=== PATIENT | male | born 1955 | race Caucasian/White ===

== ENCOUNTER → 2019-08-24 | Day surgery (SDC) | payer MEDICARE, OTHER ==
[~2019-08-24] MED LIST: ACETAMINOPHEN 325 MG TABLET PO PRN; ALBUTEROL SULFATE 2.5 MG/3 ML NEBU. NEB PRN; ATOR40TA PO; ATROPINE 0.5 MG/5 ML DISP.SYRIN. IV PRN; CARV12.547 PO; FLUT9.9S NS; HYDR12.58 PO; IV RINGERS SOLUTION,LACTATED 1,000 ML IV SCH; MIDAZOLAM HCL PF 2 MG/2 ML VIAL. IV PRN; OMEP20TA63 PO; ONDANSETRON PF 4 MG/2 ML VIAL. IV PRN; PHENOL ORAL SPRAY 177ML BOTTLE. MM PRN; PROPOFOL 20 ML IV ONE; diphenhydrAMINE 50 MG/ML VIAL IV PRN
[2019-08-24 11:03] VITALS: BP 155/88
== END ==
LOC: SURG 08:55
PROVIDERS: ATTEND Internal Medicine Gastroenterology
DX: R10.13 Epigastric pain (principal); I10 Essential (primary) hypertension; E78.5 Hyperlipidemia, unspecified; I25.10 Atherosclerotic heart disease of native coronary artery without angina pectoris; Z85.828 Personal history of other malignant neoplasm of skin
CPT/HCPCS: 43239; J2704

== ENCOUNTER → 2019-08-27 | Outpatient (CLI) | payer MEDICARE, OTHER ==
[2019-08-24 11:03] VITALS: BP 155/88
[~2019-08-27] MED LIST changes: -ACETAMINOPHEN 325 MG TABLET PO PRN; -ALBUTEROL SULFATE 2.5 MG/3 ML NEBU. NEB PRN; -ATROPINE 0.5 MG/5 ML DISP.SYRIN. IV PRN; -IV RINGERS SOLUTION,LACTATED 1,000 ML IV SCH; -MIDAZOLAM HCL PF 2 MG/2 ML VIAL. IV PRN; -ONDANSETRON PF 4 MG/2 ML VIAL. IV PRN; -PHENOL ORAL SPRAY 177ML BOTTLE. MM PRN; -PROPOFOL 20 ML IV ONE; -diphenhydrAMINE 50 MG/ML VIAL IV PRN
--- NOTE | 2019-08-27 13:58 | RAD ---
CT of the abdomen without contrast 08/27/2019 INDICATION: Epigastric pain. History of umbilical and inguinal hernia repairs. History of bypass procedure. COMPARISON STUDY: CT of the abdomen and pelvis without contrast March 15, 2016. TECHNIQUE: Multidetector CT imaging of the abdomen was performed without the administration of IV contrast. Enteric contrast was administered prior exam. FINDINGS: Visualized lung bases demonstrate no acute abnormality. Mild scarring or atelectasis appears to be present. The liver is unremarkable. Probable cholelithiasis noted. Gallbladder is otherwise unremarkable. The spleen, adrenal glands, pancreas are unremarkable. Left kidney is unremarkable. Small cyst within the inferior pole the right kidney is unchanged. No hydronephrosis or nephrolithiasis is identified.Visualized bowel demonstrates no evidence of obstruction. Partially visualized appendix is unremarkable. No free fluid or free air seen in the upper abdomen. Scarring appears to be present in the supraumbilical abdominal midline. What could be a small surgical mesh is present deep to the underlying anterior abdominal wall fascia. No evidence of recurrent hernia is identified. No abnormal focal fluid collection is seen. No acute osseous abnormality is identified. IMPRESSION: 1.No evidence of acute intra-abdominal abnormality is identified. 2. Probable cholelithiasis. Ultrasound could be considered for further characterization. CT DOSING PQRS STATEMENT: One or more of the following individualized dose reduction techniques were utilized for this examination: 1. Automated exposure control 2. Adjustment of the mA and/or kV according to patient size 3. Use of iterative reconstruction technique Electronically signed by: Gael Bal MD (08/27/2019 1:55 PM) [id number]
== END | disposition home or self-care (01) ==
LOC: CT 09:07
PROVIDERS: ATTEND Internal Medicine Gastroenterology
DX: N28.1 Cyst of kidney, acquired (principal)
CPT/HCPCS: 74150

== ENCOUNTER 2021-07-14 11:01 | Emergency (ER) | payer MEDICARE, OTHER ==
[~2021-07-14] VITALS: Ht 172.7 cm; Wt 86.5 kg
[2021-07-14 11:01] VITALS: BP 135/77
[2021-07-14 11:59] LABS: BASO % 1 % (0-3); EOS # 0.1 x10^3/uL (0.0-0.7); EOS % 2 % (0-3); HEMATOCRIT 45.6 % (39.0-53.0); HEMOGLOBIN 15.5 g/dL (13.0-17.5); LYMPH # 1.5 x10^3/uL (1.0-4.8); LYMPH % 26 % (24-48); MEAN CORPUSCULAR HEMOGLOBIN 32 pg (25-35); MEAN CORPUSCULAR HGB CONC 34 g/dL (31-37); MEAN CORPUSCULAR VOLUME 95 fL (79-100); MONO # 0.4 x10^3/uL (0.0-1.1); MONO % 7 % (0-9); NEUT # 3.6 x10^3uL (1.8-7.7); NEUT % 64 % (31-73); PLATELET COUNT 157 x10^3/uL (140-400); RED CELL DISTRIBUTION WIDTH 12.6 % (11.5-14.5); WHITE BLOOD COUNT 5.6 x10^3/uL (4.0-11.0)
[2021-07-14 12:02] LABS: CALCIUM 9.8 mg/dL (8.5-10.1); CREATININE 0.8 mg/dL (0.7-1.3); GFR 96.1
--- NOTE | 2021-07-14 12:02 | PHYS DOC ---
Past History Past Surgical History: Coronary Bypass Surgery (JOESPH BETTS APRN) Alcohol Use: Occasionally (JOESPH BETTS APRN) General Adult EDM: Chief Complaint: Palpitations HPI: HPI: Patient is a 66-year-old male who presents with fluttering in his left chest. Patient states "I have this weird swooshing feeling in the left side of my chest and back". Patient denies chest pain, shortness of breath, dizziness, nausea/vomiting. Patient denies pain. Patient has a history of high blood pressure, high cholesterol, SC and triple bypass in 2008. Patient is refusing anything for pain control at this time (JOESPH BETTS APRN) Review of Systems: Review of Systems: ROS At least 10 ROS systems have been reviewed and are negative except as documented in the HPI. General: Negative except as outlined in HPI above. Skin: Negative except as outlined in HPI above. HEENT: Negative except as outlined in HPI above. Neck: Negative except as outlined in HPI above. Respiratory: Negative except as outlined in HPI above.. Cardiovascular: Negative except as outlined in HPI above. Abdomen: Negative except as outlined in HPI above. : Negative except as outlined in HPI above. Back/MSK: Negative except as outlined in HPI above. Neuro: Negative except as outlined in HPI above. Psych: Negative except as outlined in HPI above. (JOESPH BETTS APRN) Allergies: Allergies: Allergies Coded Allergies Type Severity Reaction Last Updated Verified No Known Drug Allergies 08/24/19 No (JOESPH BETTS APRN) Physical Exam: PE: Constitutional: Well developed, well nourished, no acute distress, non-toxic appearance. [] HENT: Normocephalic, atraumatic, bilateral external ears normal, oropharynx mo ist, no oral exudates, nose normal. [] Eyes: PERRLA, EOMI, conjunctiva normal, no discharge. [] Neck: Normal range of motion, no tenderness, supple, no stridor. [] Cardiovascular:Heart rate regular rhythm, no murmur [] Lungs & Thorax: Bilateral breath sounds clear to auscultation [] Abdomen: Bowel sounds normal, soft, no tenderness, no masses, no pulsatile masses. [] Skin: Warm, dry, no erythema, no rash. [] Back: No tenderness, no CVA tenderness. [] Extremities: No tenderness, no cyanosis, no clubbing, ROM intact, no edema. [] Neurologic: Alert and oriented X 3, normal motor function, normal sensory function, no focal deficits noted. [] Psychologic: Affect normal, judgement normal, mood normal. [] (JOESPH BETTS APRN) Current Patient Data: Vital Signs: Vital Signs Date Time Temp Pulse Resp B/P (MAP) Pulse Ox O2 Delivery O2 Flow Rate FiO2 07/14/21 11:01 98.6 70 20 135/77 (96) 97 Room Air (JOESPH BETTS APRN) EKG: EKG: [] (JOESPH BETTS APRN) Radiology/Procedures: Radiology/Procedures: []INDICATION: Reason: cp / Spl. Instructions: / History: COMPARISON: None. FINDINGS: Single view of chest obtained. Poststernotomy changes. No definite focal airspace consolidation or pulmonary edema. IMPRESSION: * No focal airspace consolidation or edema. Electronically signed by: Javi Baig MD (07/14/2021 12:15 PM) [id number] (JOESPH BETTS APRN) Heart Score: C/O Chest Pain: No Risk Factors: Risk Factors: DM, Current or recent (<one month) smoker, HTN, HLP, family history of CAD, obesity. Risk Scores: Score 0 - 3: 2.5% MACE over next 6 weeks - Discharge Home Score 4 - 6: 20.3% MACE over next 6 weeks - Admit for Clinical Observation Score 7 - 10: 72.7% MACE over next 6 weeks - Early Invasive Strategies (JOESPH BETTS APRN) Course & Med Decision Making: Course & Med Decision Making Pertinent Labs and Imaging studies reviewed. (See chart for details) [] 66-year-old male who presents with a "swishing or buzzing feeling on the left side of his chest and back". She was denying chest pain, shortness of breath, nausea/vomiting. Patient denies being able to reproduce pain. Patient does have a history of an SC in 2008 and a triple bypass. Patient is currently on pr dications for high cholesterol and high blood pressure. Chest x-ray and labs are unremarkable. D-dimer 0.44. Troponin was negative. EKG showed sinus rhythm, contour abnormality, consistent with inferior infarct, chronic. Discussed results with patient. Patient most likely is having a muscle spasm. Patient is currently treating sciatic pain at home from previous lower back injury. I offered Flexeril and Toradol to see if it helped with the sensation in his back. Patient is refusing any medication. Advised patient to call his PCP on Friday and make a follow-up appointment if sensation continues. Patient given strict return precautions. Patient verbalizes understanding. Patient's hemodynamically stable upon disposition. (JOESPH BETTS APRN) Taeon Disclaimer: Sarah Disclaimer: This electronic medical record was generated, in whole or in part, using a voice recognition dictation system. (JOESPH BETTS APRN) Attending Co-Sign The patient was seen and interviewed as well as examined at the bedside. The chart was reviewed. The case was discussed. Agree with the plan of care. (ALBER EVERETT DO) Departure Departure: Impression: Primary Impression: Spasm of thoracic back muscle Disposition: HOME / SELF CARE / HOMELESS Condition: STABLE Referrals: ADRIÁN NEIL (PCP) Patient Instructions: Muscle Cramps, Htpd-[id number], Sciatica, [id number] Additional Instructions: You were seen in the emergency room for a swishing sensation in your left upper back. Your chest x-ray and labs were unremarkable. Most likely you are having a muscle spasm. Please call your PCP on Friday to make a follow-up appointment. If you have chest pain, shortness of breath, dizziness or any worsening or concerning symptoms please return to the emergency room. EMERGENCY DEPARTMENT GENERAL DISCHARGE INSTRUCTIONS Thank you for coming to [facility] (ED) today and trusting us with you care. We trust that you had a positivie experience in our Emergency Department. If you wish to speak to the department management, you may call the director at [phone]. YOUR FOLLOW UP INSTRUCTIONS ARE FOLLOWS: 1. Do you have a private Doctor? If you do not have a private doctor, please ask for a resource list of physicians or clinics that may be able to assist you with follow up care. 2. The Emergency Physician has interpreted your x-rays. The X-Ray specialist will also review them. If there is a change in the findings, you will be notified in 48 hours when at all possible. 3. A lab test or culture has been done, your results will be reviewed and you will be notified if you need a change in treatment. ADDITIONAL INSTRUCTIONS AND INFORMATION: 1. Your care today has been supervised by a physician who is specially trained in emergency care. Many problems require more than one evaluation for a complete diagnosis and treatment. We recommend that you schedule your follow up appointment as recommended to ensure complete treatment of you illness or injury. If you are unable to obtain follow up care and continue to have a problem, or if your condition worsens, we recommend that you return to the ED. 2. We are not able to safely determine your condition over the phone nor are we able to give sound medical advice over the phone. For these safety reasons, if you call for medical advice we will ask you to come to the ED for further evaluation. 3. If you have any questions regarding these discharge instructions please call the ED at [phone]. SAFETY INFORMATION: In the interest of safety, wellness, and injury prevention; we encourage you to wear your sealbelt, if you smoke; quite smoking, and we encourage family to use a protective helmet for bicycling and other sporting events that present an increased risk for head injury. IF YOUR SYMPTOMS WORSEN OR NEW SYMPTOMS DEVELOP, OR YOU HAVE CONCERNS ABOUT YOUR CONDITION; OR IF YOUR CONDITION WORSENS WHILE YOU ARE WAITING FOR YOUR FOLLOW UP APPOINTMENT; EITHER CONTACT YOUR PRIMARY CARE DOCTOR, THE PHYSICIAN WHOSE NAME AND NUMBER YOU WERE GIVEN, OR RETURN TO THE ED IMMEDIATELY. JOESPH BETTS APRN Jul 14, 2021 12:02 ALBER EVERETT DO Jul 15, 2021 06:39
[2021-07-14 12:14] LABS: ALBUMIN 3.9 g/dL (3.4-5.0); ALBUMIN/GLOBULIN RATIO 1.5 (1.0-1.7); TOTAL BILIRUBIN 0.8 mg/dL (0.2-1.0); TOTAL PROTEIN 6.5 g/dL (6.4-8.2)
--- NOTE | 2021-07-14 12:17 | RAD ---
INDICATION: Reason: cp / Spl. Instructions: / History: COMPARISON: None. FINDINGS: Single view of chest obtained. Poststernotomy changes. No definite focal airspace consolidation or pulmonary edema. IMPRESSION: * No focal airspace consolidation or edema. Electronically signed by: Javi Baig MD (07/14/2021 12:15 PM) [id number]
--- NOTE | 2021-07-14 19:47 | EKG ---
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
== END 2021-07-14 13:30 | disposition home or self-care (01) ==
LOC: ER 11:01
DX: I49.8 Other specified cardiac arrhythmias (principal); Z95.1 Presence of aortocoronary bypass graft
CPT/HCPCS: 36415; 71045; 80053; 83880; 84484; 85025; 85379; 85610; 85730; 93005; 99285

== ENCOUNTER → 2021-07-26 | Outpatient (CLI) | payer MEDICARE, OTHER ==
[2021-07-14 11:01] VITALS: BP 135/77
--- NOTE | 2021-07-26 10:10 | RAD ---
EXAM: Chest CT without intravenous contrast. HISTORY: Chest wall and scapular pain. TECHNIQUE: Computed tomographic images of the chest were obtained without contrast. Multiplanar refor matting was performed. *One or more of the following individualized dose reduction techniques were utilized for this examina tion: 1. Automated exposure control. 2. Adjustment of the mA and/or kV according to patient size. 3. Use of iterative reconstruction technique. COMPARISON: None. FINDINGS: The heart is normal in size. There is evidence of prior coronary artery bypass grafting. No pathologically enlarged mediastinal or hilar lymph node is seen. There is no pneumothorax or pleural effusion. There is minimal posterior dependent atelectasis. There is mild emphysema. There is no inf iltrate. There is a 2 mm nodule within the left lower lobe which is likely a partially calcified gran uloma. No suspicious nodule is seen. There is cholelithiasis. There is no acute finding involving the visualized upper abdomen. No fractur e is seen. There is degenerative change involving the visualized spine. This includes a left paracent ral disc protrusion contributing to suspected mild central canal stenosis at T7-T8. There is a promin ent superior endplate Schmorl's node at T1. IMPRESSION: 1. No acute thoracic finding. 2. Mild emphysema. 3. Findings consistent with prior CABG. 4. Cholelithiasis. Electronically signed by: Keiko Kamara MD (07/26/2021 10:08 AM) [facility]
== END ==
LOC: CT 09:30
PROVIDERS: ATTEND Physician Assistant Medical
DX: J43.9 Emphysema, unspecified (principal); R91.1 Solitary pulmonary nodule; K80.20 Calculus of gallbladder without cholecystitis without obstruction; M51.44 Schmorl's nodes, thoracic region; R07.89 Other chest pain
CPT/HCPCS: 71250

== ENCOUNTER → 2021-12-10 | Day surgery (SDC) | payer MEDICARE, OTHER ==
[~2021-12-10] MED LIST changes: +ACETAMINOPHEN 500 MG TABLET PO PRN; +ASPI-630 PO; +BALANCED SALT IRRIG SOLN NO.2 500 ML IO ONE; +BENZONATATE 100 MG CAPSULE. PO PRN; +BRIMONIDINE 0.2% OPHTH SOLUTION 5ML BOTTLE. OS ONE; +CEFUROXIME OPHTH 4 MG/0.4 ML SYRINGE. OS ONE; +CHONDROIT-SOD-HYALURONATE KIT. OS ONE; +IBUPROFEN 200 MG TABLET PO PRN; +IPRATRPIUM/ALBUTEROL 0.5/2.5MG 3 ML NEBU. NEB PRN; +IV RINGERS SOLUTION,LACTATED 1,000 ML IV SCH; +LIDO/EPI IN BSS OPHTH 2.7 ML SYRINGE. OS ONE; +LIDOCAINE 2% JELLY 6ML IN APPLICATOR. ONE; +MIDAZOLAM HCL PF 2 MG/2 ML VIAL. IV ONE; +MIDAZOLAM HCL PF 2 MG/2 ML VIAL. ONE; +MULTIVITAMIN PO; +ONDANSETRON PF 4 MG/2 ML VIAL. IV PRN; +PHENYLEPHRINE 10% OPHTH SOLUTION 5ML BOTTLE. OS PRN; +POVIDONE-IODINE 5% OPHTH SOLUTION 30ML BOTTLE. OS ONE; +POVIDONE-IODINE 5% OPHTH SOLUTION 30ML BOTTLE. OS PRN; +PROPARACAINE 0.5% OPHTH SOLUTION 15ML BOTTLE. OS ONE; +PROPARACAINE 0.5% OPHTH SOLUTION 15ML BOTTLE. OS PRN; +prednisoLONE ACETATE 1% OPHTH SUSPENSION 5ML BOTTLE. OS ONE
[2021-12-10] MEDS: KETOROLAC TROMETHAMINE 0.5% OPHTH SOLUTION BOTTLE. OS SCH ×2 (11:00→11:11)
[2021-12-10] MEDS: PHENYLEPHRINE 2.5% OPHTH SOLUTION 2ML BOTTLE. OS SCH ×3 (11:00→11:16)
[2021-12-10] MEDS: TROPICAMIDE 1% OPHTH SOLUTION 15ML BOTTLE. OS SCH ×3 (11:00→11:16)
[2021-12-10] MEDS: TOBRAMYCIN 0.3% OPHTH SOLUTION 5ML BOTTLE. OS SCH ×2 (11:00→11:11)
--- NOTE | 2021-12-10 12:03 | PDOC4 ---
Date of Procedure: 12/10/21 PREOP Diagnosis Visually significant cataract: Left Eye OS POSTOP Diagnosis Same PROCEDURE: Phaco w/ posterior chamber IOL: Left Eye OS ANESTHESIA x Deep forniceal periocular 2% Lidocaine jelly Urvashi/retro bulbar block with 2% Lidocaine with 0.5% Marcaine DESCRIPTION OF PROCEDURE The risks, benefits, and alternatives were discussed with the patient who elected to proceed. Informed consent was obtained in writing and placed in the chart After anesthetizing the eye topically, the patient was taken to the operating room, and the operative eye was prepped and draped in the usual sterile fashion for ocular surgery. A wire lid speculum was placed. A 1-mm clear corneal paracentesis incision was created with the side-port blade at a position three o'clock hours clockwise from the temporal cornea. Then, 1% non-preserved Lidocaine with epinephrine was injected into the anterior chamber followed by viscoelastic. Cotton-tipped applicators were used to stabilize the globe, and a 2.4 mm keratome was used to create a self-sealing incision in clear cornea at the temporal limbus. The Utrata forceps were used to create a continuous curvilinear capsulorrhexis. Balanced saline solution was injected via cannula beneath the capsulorrhexis edge to hydrodissect the lens nucleus and cortex from the lens capsule. The phacoemulsification handpiece and a chopping instrument were then used to remove the lens nucleus. The remaining epinuclear material and cortex were removed with the irrigation/aspiration handpiece. Viscoelastic was used to re-inflate the lens capsule, and the intraocular lens was injected directly into the capsular bag. The corneal wound edges were hydrated with balanced salt solution on a cannula and the irrigation/aspiration handpiece was used to extract the remaining viscoelastic. Cefuroxime 0.1mg/ml was injected into the anterior chamber intracamerally. The wounds were inspected and found to be watertight at an appropriate intraocular pressure. Topical antibiotic drops were placed on the corneal surface. LRI: No If Yes, Number [] [place] [] Length [] degrees Depth [] microns Incision [place]: 180 Toric Lens [place] [] Patch/shield with Maxitrol/Tobradex/Erythromycin ointment: Yes x No Co-managed patients/postop examination stable for co-management with referring doctor. EBL EBL: None SPECIMANS COLLECTED Specimens Collected: None GILLES GUILLEN MD Dec 10, 2021 12:03
[2021-12-10 12:07] VITALS: BP 158/79
== END | disposition home or self-care (01) ==
LOC: SURG 10:19
PROVIDERS: ATTEND Ophthalmology
DX: H25.12 Age-related nuclear cataract, left eye (principal); I10 Essential (primary) hypertension; E78.00 Pure hypercholesterolemia, unspecified; I25.10 Atherosclerotic heart disease of native coronary artery without angina pectoris; J43.9 Emphysema, unspecified; Z79.82 Long term (current) use of aspirin; Z79.899 Other long term (current) drug therapy; Z72.89 Other problems related to lifestyle; Z95.1 Presence of aortocoronary bypass graft; Z85.828 Personal history of other malignant neoplasm of skin
CPT/HCPCS: 66984; A4657; J2250; V2632